=== PATIENT | female | born 1985 | race Caucasian/White ===

== ENCOUNTER → 2016-06-11 | Outpatient (CLI) | payer MEDICAID ==
[~2016-06-11] MED LIST: DOCU-30 PO; HYDR-3138 PO; IBUP200T48 PO
== END | disposition home or self-care (01) ==
LOC: RAD 14:43
PROVIDERS: ATTEND Student in an Organized Health Care Education/Training Program
DX: O00.90 Unspecified ectopic pregnancy without intrauterine pregnancy (principal); N97.1 Female infertility of tubal origin; Z3A.00 Weeks of gestation of pregnancy not specified
CPT/HCPCS: 74740